=== PATIENT | male | born 1980 ===

== ENCOUNTER 2022-04-24 13:36 | Emergency (ER) | payer BC ==
[~2022-04-24] VITALS: Ht 177.8 cm; Wt 102.1 kg
[2022-04-24] MEDS ORDERED: Cymbalta20 MG PO (15:06)
[2022-04-24] MEDS ORDERED: PROP10 PO (15:06)
[2022-04-24] MEDS ORDERED: RESTORIL PO (15:06)
[2022-04-24] MEDS ORDERED: TRAZ50 PO (16:35)
== END 2022-04-24 18:07 | disposition home or self-care (01) ==
LOC: ER 13:36
DX: F32.A Depression, unspecified (principal); Z79.899 Other long term (current) drug therapy
CPT/HCPCS: 99283; A9270